=== PATIENT | male | born 1995 | race African-American/Black ===

== ENCOUNTER 2024-03-10 20:21 | Emergency (ER) | payer MEDICAID ==
[~2024-03-10] VITALS: Ht 188 cm; Wt 82.0 kg
[2024-03-10 20:28] VITALS: TEMP 98.1; O2SAT 99
[2024-03-10] MEDS: FAMOTIDINE 20MG/2ML VIAL IV STA (21:02)
[2024-03-10] MEDS: ONDANSETRON HCL 4MG/2ML INJ IV STA (21:02)
[2024-03-10] MEDS: SODIUM CHLORIDE 0.9% 1,000 ML IV ONE (21:02)
[2024-03-10] MEDS: MAGNESIUM/ALUMINUM HYDROXIDE/SIMETHICONE 30ML UDC PO STA (21:02)
[2024-03-10 21:06] LABS: HEMATOCRIT. 41.8 % (42.0-52.0); HEMOGLOBIN. 14.3 g/dL (14.0-18.0); MEAN CORPUSCULAR HEMOGLOBIN 30.9 pg (28.0-32.0); MEAN CORPUSCULAR HGB CONC 34.3 g/dL (31.0-37.0); MEAN CORPUSCULAR VOLUME 90.1 fL (80.0-94.0); MEAN PLATELET VOLUME 8.6 fl (7.4-10.4); PLATELET 156 x1000/uL (130-400); RED BLOOD CELL COUNT 4.64 mill/uL (4.7-6.1); RED CELL DISTRIBUTION WIDTH 12.5 % (11.6-14.6)
[2024-03-10 21:09] LABS: DIFFERENTIAL COMMENT 1
[2024-03-10 21:11] LABS: CHLORIDE 106 mEq/L (98-107); POTASSIUM 3.7 mEq/L (3.5-5.1); SODIUM 138 mEq/L (136-145)
[2024-03-10 21:12] LABS: CALCIUM 10.6 mg/dL (8.7-10.4); CARBON DIOXIDE 22 mEq/L (21-32)
[2024-03-10 21:17] LABS: CREATININE 1.1 mg/dL (0.6-1.3); GLUCOSE 102 mg/dL (70-105); INR 1.1; PROTHROMBIN TIME 11.9 sec (9.6-11.0); UREA NITROGEN BLOOD 20 mg/dL (9-23)
[2024-03-10 21:19] LABS: ALANINE AMINOTRANSFERASE 16 IU/L (10-49); ASPARTATE AMINOTRANSFERASE 34 IU/L (<34); BILIRUBIN TOTAL 2.4 mg/dL (0.1-1.0); PROTEIN TOTAL 7.9 g/dL (6.0-8.3)
[2024-03-10 21:36] LABS: PLATELET ESTIMATE NORMAL
[2024-03-10 22:31] VITALS: BP 133/68; PULSE 53; RESP 16
[2024-03-10] MEDS ORDERED: FAMO-135 MT (22:41)
== END 2024-03-10 22:55 | disposition home or self-care (01) ==
LOC: ER 20:21
DX: R10.13 Epigastric pain (principal); R11.2 Nausea with vomiting, unspecified
CPT/HCPCS: 80053; 83690; 85025; 85610; 36415; 96361; 96374; 96375; 99284; J3490; J2405; J7030; Z7610 ×3

== ENCOUNTER 2024-09-12 18:01 | Emergency (ER) | payer MEDICAID ==
[~2024-09-12] VITALS: Ht 188 cm; Wt 82.0 kg
[~2024-09-12 18:01] MED LIST: FAMO-135 MT
[2024-09-12 18:13] VITALS: O2SAT 99
[2024-09-12] MEDS ORDERED: FAMO-135 MT (18:59)
[2024-09-12] MEDS ORDERED: MAG-55 MT (19:00)
[2024-09-12 19:28] VITALS: BP 138/70; PULSE 60; RESP 19; TEMP 36.78072; O2SAT 99
== END 2024-09-12 19:30 | disposition home or self-care (01) ==
LOC: ER 18:01
DX: K29.70 Gastritis, unspecified, without bleeding (principal)
CPT/HCPCS: 99282

== ENCOUNTER 2024-09-21 12:06 | Emergency (ER) | payer MEDICAID ==
[~2024-09-21] VITALS: Ht 188 cm; Wt 79.8 kg
[~2024-09-21 12:06] MED LIST changes: +MAG-55 MT
[2024-09-21 12:17] VITALS: BP 113/60; O2SAT 100
[2024-09-21 12:52] LABS: BASOPHILS % 0.5 % (0.0-2.0); HEMATOCRIT. 42.2 % (42.0-52.0); HEMOGLOBIN. 13.9 g/dL (14.0-18.0); LYMPHOCYTES % 34.2 % (20.0-50.0); MEAN CORPUSCULAR HEMOGLOBIN 29.4 pg (28.0-32.0); MEAN PLATELET VOLUME 8.8 fl (7.4-10.4); MONOCYTES % 3.1 % (2.0-8.0); NEUTROPHILS % 61.2 % (40.0-76.0); PLATELET 170 x1000/uL (130-400); RED BLOOD CELL COUNT 4.74 mill/uL (4.7-6.1); RED CELL DISTRIBUTION WIDTH 11.9 % (11.6-14.6); WHITE BLOOD COUNT 4.4 x1000/uL (4.5-11.0)
[2024-09-21 12:59] LABS: CARBON DIOXIDE 26 mEq/L (21-32); CHLORIDE 108 mEq/L (98-107); POTASSIUM 3.8 mEq/L (3.5-5.1); SODIUM 140 mEq/L (136-145)
[2024-09-21 12:59] LABS: CLARITY URINE CLEAR (CLEAR); COLOR URINE DARK YELLOW (YELLOW); GLUCOSE URINE NEGATIVE (NEGATIVE); KETONES URINE TRACE (NEGATIVE); LEUKOCYTE ESTERASE URINE NEGATIVE (NEGATIVE); NITRITE URINE NEGATIVE (NEGATIVE); OCCULT BLOOD URINE NEGATIVE (NEGATIVE); PH URINE 5.5 (4.5-8.0); PROTEIN URINE TRACE (NEGATIVE); SPECIFIC GRAVITY URINE 1.029 (1.005-1.030)
[2024-09-21 13:00] LABS: CALCIUM 10.2 mg/dL (8.7-10.4)
[2024-09-21 13:05] LABS: CREATININE 1.2 mg/dL (0.6-1.3); GLUCOSE 93 mg/dL (70-105); UREA NITROGEN BLOOD 15 mg/dL (9-23)
[2024-09-21 13:06] LABS: ALANINE AMINOTRANSFERASE 17 IU/L (10-49); ASPARTATE AMINOTRANSFERASE 33 IU/L (<34)
[2024-09-21 13:07] LABS: BILIRUBIN DIRECT 0.5 mg/dL (<=3.0); BILIRUBIN TOTAL 1.6 mg/dL (0.1-1.0); PROTEIN TOTAL 7.8 g/dL (6.0-8.3)
[2024-09-21 13:41] LABS: BACTERIA URINE NONE SEEN; RBC URINE 0-2 /hpf (0-2); SQUAMOUS EPITHELIAL CELL URINE RARE /lpf (RARE/1+); YEAST URINE NONE SEEN
[2024-09-21 14:09] VITALS: PULSE 67; RESP 16; TEMP 36.78072; O2SAT 100
== END 2024-09-21 14:15 | disposition home or self-care (01) ==
LOC: ER 12:06
DX: K29.70 Gastritis, unspecified, without bleeding (principal); Z87.19 Personal history of other diseases of the digestive system
CPT/HCPCS: 36415; 80048; 80076; 81003; 85025; 99283